=== PATIENT | male | born 1995 | race Caucasian/White ===

== ENCOUNTER → 2022-07-06 | Outpatient (CLI) | payer OTHER ==
[2022-07-06 17:47] VITALS: BP 118/80; PULSE 88; RESP 13; TEMP 98.3; BMI 43.6
--- NOTE | 2022-07-06 18:13 | P.HPBAR ---
Bariatric H&P - History & Physicial H&P Date: 07/06/22 History & Physicial: Visit/CC: new pt Patient initial contact: Initial weight: Initial weight in pounds: Height: 5 ft 9.5 in Initial BMI: Last weight: Current weight: 135.851 kg Current weight in pounds: 299.50 Current BMI: 43.6 [place] body weight (based on NIH guidelines): 73.936 kg Excess body weight loss: The patient is a 27 year-old M who presents for Bariatric Assessment. Was 435 pounds. He lost weight on his own. did it through keto and food restriction. Mother had weight loss. Aunt had it for weight. All had the sleeve. No heartburn. No esophageal cancer. Still has gallbladder. LFTs. Has back pain. Expecting baby in December. Looking for co-morbidities. Past Medical History Past Medical History: No Reported History History of Any Multi-Drug Resistant Organisms: None Reported Past Surgical History: Appendectomy, Tonsillectomy Past Psychological History: No Psychological Hx Reported Smoking Status: Never smoker Surgical - Exam Vital Signs Temp Pulse Resp BP 98.3 F 88 13 118/80 07/06/22 17:41 07/06/22 17:41 07/06/22 17:41 07/06/22 17:41 Bariatric Checklist Checklist: Plan: Checklist: EGD: 1. Hiatal hernia: 2. H. Pylori: HgbA1c: Vitamin D: Smoking: Primary care physician referral: caitlin Psychiatry clearance: Cardiology clearance: Sleep study: Diet journal: VTE risk score: VTE risk level: Rehab needs at discharge:
== END ==
LOC: BARWHC3 15:59
PROVIDERS: ATTEND Surgery Plastic and Reconstructive Surgery
DX: E66.01 Morbid (severe) obesity due to excess calories (principal); Z68.41 Body mass index [BMI] 40.0-44.9, adult
CPT/HCPCS: 99202